=== PATIENT | female | born 1990 | race Caucasian/White ===

== ENCOUNTER 2017-05-11 04:28 | Inpatient (IN) | payer BC ==
[~2017-05-11] VITALS: Ht 160 cm; Wt 107.0 kg
[~2017-05-11 04:28] MED LIST: CITA40TA4 PO
[2017-05-11] MEDS ORDERED: LACTATED RINGER'S 1000ML 1,000 ML IV PRN (05:45)
[2017-05-11 06:13] LABS: HEMATOCRIT 37.1 % (37-47); MEAN CELL VOLUME 79.6 fL (80-100); MEAN CORPUSCULAR HEMOGLOBIN 26.2 pg (25-34); MEAN CORPUSCULAR HGB CONC 32.9 g/dl (32-36); MEAN PLATELET VOLUME 10.7 fL (7.4-10.4); PLATELET COUNT 326 K/uL (130-400); RED BLOOD COUNT 4.66 M/uL (4.2-5.4); WHITE BLOOD COUNT 14.74 K/uL (4.8-10.8)
[2017-05-11 06:20] VITALS: Ht 160 cm; Wt 107.0 kg
[2017-05-11] MEDS ORDERED: LACTATED RINGER'S 1000ML 500 ML IV PRN ×2 (11:01→14:13)
[2017-05-11] MEDS ORDERED: OXYTOCIN 30 UNITS/500ML NSS IV PRN (11:15)
[2017-05-11] MEDS: LACTATED RINGER'S 1000ML 1,000 ML IV SCH ×4 (12:47→23:28)
[2017-05-11] MEDS ORDERED: FENTANYL 2MCG/ML ROPIV 1.25MG/ML 100ML BAG EPI ONE (12:57)
[2017-05-11] MEDS ORDERED: EpHEDrine SULFATE INJ 50 MG/ML AMP ONE (12:57)
[2017-05-11] MEDS ORDERED: BUPIVACAINE 0.25% 30 ML VIAL ONE (12:57)
[2017-05-11] MEDS ORDERED: FENTANYL CITRATE INJ 50 MCG/1 ML 2 ML VIAL ONE (12:58)
[2017-05-11] MEDS ORDERED: NALOXONE HCL INJ 1 MG in SODIUM CHLORIDE 0.9% 1000ML 1,000 ML IV PRN ×4 (14:13)
[2017-05-11] MEDS ORDERED: NALBUPHINE HCL INJ 10 MG/ML AMP IV PRN (14:15)
[2017-05-11] MEDS ORDERED: EpHEDrine SULFATE INJ 50 MG/ML AMP IV PRN (14:15)
[2017-05-11] MEDS ORDERED: NALOXONE HCL INJ 0.4 MG/1 ML VIAL/CARP IV PRN (14:15)
[2017-05-11] MEDS ORDERED: ONDANSETRON INJ 2 MG/ML 2 ML VIAL IV PRN (14:15)
[2017-05-11] MEDS ORDERED: PROMETHAZINE HCL INJ 25 MG in SODIUM CHLORIDE 0.9% 50ML 50 ML IV PRN (14:15)
[2017-05-11] MEDS ORDERED: DiphenhydrAMINE HCL 50 MG/ML VIAL IV PRN (14:15)
[2017-05-11] MEDS: FENTANYL 2MCG/ML ROPIV 1.25MG/ML 100ML BAG EPI PRN ×2 (19:02→20:07)
[2017-05-11] MEDS ORDERED: AMPICILLIN IV 2,000 MG in SODIUM CHLOR 0.9% AD-VAN 100ML 100 ML IV SCH (23:00)
[2017-05-12] VITALS (18 sets, daily range): BP systolic 115–145; BP diastolic 77–93; PULSE 81–99; TEMP 36.4–36.9; O2SAT 94–96
[2017-05-12] MEDS ORDERED: GENTAMICIN INJ 120 MG in DEXTROSE 5% 100ML 100 ML IV SCH ×2
[2017-05-12] MEDS ORDERED: LIDOCAINE/EPINEPHRINE 2% 1:200,000 20 ML SDV ONE (00:02)
[2017-05-12] MEDS ORDERED: FENTANYL CITRATE INJ 50 MCG/1 ML 2 ML VIAL ONE (00:03)
[2017-05-12] MEDS ORDERED: CITRIC ACID/SODIUM CITRATE 15 ML UDC ONE (00:10)
[2017-05-12] MEDS ORDERED: CITRIC ACID/SODIUM CITRATE 15 ML UDC PO ONE (00:15)
[2017-05-12] MEDS ORDERED: CEFAZOLIN IV 2,000 MG in DEXTROSE 5% 50ML 50 ML IV ONE (00:30)
[2017-05-12] MEDS ORDERED: CEFAZOLIN SOD 1 GM VIAL ONE (00:35)
[2017-05-12] MEDS ORDERED: OXYTOCIN INJ 10 UNITS/ML VIAL ONE ×2 (00:41→01:01)
[2017-05-12] MEDS ORDERED: DEXAMETHASONE SOD INJ 4 MG/ML VIAL ONE (00:51)
[2017-05-12] MEDS ORDERED: ONDANSETRON INJ 2 MG/ML 2 ML VIAL ONE (00:51)
[2017-05-12] MEDS ORDERED: MoRPHine SULFATE PF 1 MG/ML 10 ML AMP/VIAL ONE (00:52)
[2017-05-12] MEDS ORDERED: PHENYLEPHRINE 100MCG/ML 5ML SYR ONE (01:03)
[2017-05-12] MEDS ORDERED: PHENYLEPHRINE HCL INJ 10 MG/ML VIAL ONE (01:06)
[2017-05-12] MEDS ORDERED: LACTATED RINGER'S 1000ML 500 ML IV PRN (01:31)
[2017-05-12] MEDS ORDERED: SODIUM CHLORIDE 0.9% 1000ML 1,000 ML IV PRN (01:31)
[2017-05-12] MEDS ORDERED: NALOXONE HCL INJ 0.08 MG in SYRINGE 1.8 ML IV PRN (01:31)
[2017-05-12] MEDS ORDERED: NALOXONE HCL INJ 1 MG in SODIUM CHLORIDE 0.9% 1000ML 1,000 ML IV PRN ×4 (01:31)
--- NOTE | 2017-05-12 01:41 | Anesthesia Procedure Note ---
Anesthesia Epidural Removal Nt Date & Time May 12, 2017 at 01:41 Vital Signs Pain Intensity: 1.0 Notes Mental Status: alert / awake / arousable, participated in evaluation Nausea / Vomiting: adequately controlled Pain: adequately controlled Airway Patency, RR, SpO2: stable & adequate BP & HR: stable & adequate Hydration State: stable & adequate Neuraxial Anesthesia: was administered Anesthetic Complications: no major complications apparent, pt satisfied with anesthetic care Epidural: removed without complications, with tip intact
--- NOTE | 2017-05-12 01:42 | Anesthesiology Progress Note ---
Anesthesia Post Op Note Date & Time May 12, 2017 at 01:41 Vital Signs Pain Intensity: 1.0 Notes Mental Status: alert / awake / arousable, participated in evaluation Pt Amnestic to Procedure: No Nausea / Vomiting: adequately controlled Pain: adequately controlled Airway Patency, RR, SpO2: stable & adequate BP & HR: stable & adequate Hydration State: stable & adequate Neuraxial Anesthesia: was administered, sensory block is resolving Anesthetic Complications: no major complications apparent
[2017-05-12] MEDS ORDERED: ONDANSETRON INJ 2 MG/ML 2 ML VIAL IV PRN ×2 (01:45→18:00)
[2017-05-12] MEDS ORDERED: NALOXONE HCL 0.4 MG/1 ML VIAL/CARP IV PRN (01:45)
[2017-05-12] MEDS ORDERED: DiphenhydrAMINE HCL 50 MG/ML VIAL IV PRN ×2 (01:45→18:00)
[2017-05-12] MEDS ORDERED: SENNA 8.6 MG TAB PO PRN (01:45)
[2017-05-12] MEDS ORDERED: PROMETHAZINE HCL INJ 25 MG in SODIUM CHLORIDE 0.9% 50ML 50 ML IV PRN ×2 (01:45→18:00)
[2017-05-12] MEDS ORDERED: EpHEDrine SULFATE INJ 50 MG/ML AMP IV PRN (01:45)
[2017-05-12] MEDS ORDERED: MoRPHine SULFATE PF 1 MG/ML 10 ML AMP/VIAL EPI PRN (01:45)
[2017-05-12] MEDS ORDERED: SUPERCREAM 0.870 % 15GM JAR EXT PRN (01:45)
[2017-05-12] MEDS ORDERED: MAGNESIUM HYDROXIDE SUSP 30 ML UDC PO PRN (01:45)
[2017-05-12] MEDS ORDERED: HYDROCORTISONE ACETATE 25 MG SUPP PR PRN (01:45)
[2017-05-12] MEDS ORDERED: LANOLIN OINT EXT PRN ×2 (01:45)
[2017-05-12] MEDS ORDERED: NALBUPHINE HCL INJ 10 MG/ML AMP IV PRN (01:45)
[2017-05-12] MEDS ORDERED: NO NARCOTICS OR SEDATIVES SCH (01:45)
[2017-05-12] MEDS ORDERED: BENZOCAINE 20% AER SPR 82.5 GM CAN EXT PRN (01:45)
[2017-05-12] MEDS: KETOROLAC TROMETHAMINE 30 MG/ML VIAL IV. PRN ×3 (02:06→17:20)
[2017-05-12] MEDS: OXYTOCIN INJ 20 UNITS in LACTATED RINGER'S 1000ML 1,000 ML IV SCH ×2 (05:08→15:34)
[2017-05-12] MEDS: AMPICILLIN IV 2,000 MG in SODIUM CHLORIDE 0.9% 100ML 100 ML IV SCH ×3 (05:49→18:01)
[2017-05-12] MEDS: GENTAMICIN INJ 80 MG in DEXTROSE 5% 100ML 100 ML IV SCH ×2 (07:35→16:01)
--- NOTE | 2017-05-12 07:36 | OPERATIVE REPORT ---
DATE OF OPERATION: 05/11/2017 INDICATION FOR SURGERY: This is a 27-year-old, who presented to labor and delivery with spontaneous rupture of membranes. The patient continued to progress with Pitocin augmentation and was fully dilated. The patient pushed for an hour and a half with no change in station, but did experience tachycardia. She was given IV hydration and antibiotics, but the tachycardia did not improve. She eventually spiked a temperature of 101. Decision was, therefore, made to perform a section. The diagnosis at the time of the section was chorioamnionitis. PREOPERATIVE DIAGNOSES: 1. Chorioamnionitis. 2. Prolonged premature rupture of membranes. 3. tachycardia. POSTOPERATIVE DIAGNOSES: Same. PROCEDURE: Primary section. SURGEON: Dr. Esquivel. DIRECTOR COMPLIANCE: Dr. Willoughby. ESTIMATED BLOOD LOSS: 600 mL IV FLUIDS: 1400 mL URINE OUTPUT: 200 mL delio-colored urine at the end of procedure. FINDINGS: Live male in occiput anterior presentation. There was no nuchal cord. Uterus, tubes, and pelvis appeared grossly normal. SPECIMEN: 1. Cord blood. 2. Cord gas. 3. Placenta. DRAINS: Victor catheter. ANESTHESIA: Epidural ATTENDING FOR ANESTHESIA: Dr. Bergeron. COMPLICATIONS: None. DISPOSITION: Stable to recovery room. PROCEDURE: The patient was taken to the operating room where she was prepped and draped in normal sterile fashion after time out was called. A Pfannenstiel incision was made with a scalpel and carried down to the fascia. Fascia was incised in the midline and extended laterally on both sides. The fascia was dissected off the rectus abdominus muscles superiorly and inferiorly. The midline of the rectus abdominis muscle was identified and entered sharply. Peritoneum was identified and entered sharply. It was transected superiorly and inferiorly. Once inside the abdomen, an Glen retractor was placed in the abdomen for retraction. Findings of the abdomen were as dictated above. The vesicouterine peritoneum was sharply dissected off the lower segment of the uterus. A low transverse incision was made on the uterus and extended laterally on both sides. The infant's head was delivered atraumatically. Cord was clamped and cut and handed over to the pediatric team. Infant's weight and Apgars in the pediatric record. The placenta was manually removed. The uterus was exteriorized and cleared of all clots and debris. Uterus was closed in 2 layers, using 0 Vicryl. There was good hemostasis at the end of the closure. The vesicouterine peritoneum was reapproximated using plain suture. Copious amount of irrigation was used to irrigate the abdomen. There was good hemostasis at the end of the procedure. As stated above, both tubes, ovaries and uterus all appeared grossly normal. The peritoneum was loosely reapproximated using plain suture. The rectus abdominus muscle was also loosely reapproximated using plain suture in a [id number] fashion. The fascia was closed in a running fashion using Vicryl stitch. The subQ space was irrigated and closed with plain suture and skin was closed with kelley. All instruments were removed from the abdomen, including the retractors, and are accounted for x2. Baby and mother are doing well and are in recovery. I attest to the content of the Intraoperative Record and any orders documented therein. Any exception s are noted below.
[2017-05-12] MEDS: SIMETHICONE 80 MG CHEW PO SCH ×4 (07:37→20:34)
[2017-05-12] MEDS: DOCUSATE SODIUM 100 MG CAP PO SCH ×2 (08:42→20:34)
[2017-05-12] MEDS: CITALOPRAM 20 MG TAB PO SCH (09:19)
[2017-05-12] MEDS ORDERED: MoRPHine SULFATE 2 MG/ML CARP IV ONE (12:30)
[2017-05-12] MEDS ORDERED: NURSING VERBAL MED ORDER ONE (12:30)
[2017-05-12] MEDS ORDERED: MoRPHine SULFATE 2 MG/ML CARP IV PRN (13:00)
[2017-05-12] MEDS ORDERED: ZOLPIDEM TARTRATE 5 MG TAB PO PRN (18:00)
[2017-05-12] MEDS ORDERED: DC INTRASPINAL MORPHINE SCH (18:00)
[2017-05-12] MEDS ORDERED: OXYCODONE/ACETAMINOPHEN 5-325 TAB PO PRN (18:00)
[2017-05-12] MEDS: OXYCODONE/ACETAMINOPHEN 5-325 TAB PO PRN (20:35)
[2017-05-12] MEDS: IBUPROFEN 600 MG TAB PO PRN (20:36)
[2017-05-13] MEDS: AMPICILLIN IV 2,000 MG in SODIUM CHLORIDE 0.9% 100ML 100 ML IV SCH (00:03)
[2017-05-13] MEDS: GENTAMICIN INJ 80 MG in DEXTROSE 5% 100ML 100 ML IV SCH (00:35)
[2017-05-13] MEDS: OXYCODONE/ACETAMINOPHEN 5-325 TAB PO PRN ×5 (00:36→20:45)
[2017-05-13] MEDS: IBUPROFEN 600 MG TAB PO PRN ×5 (00:36→20:46)
[2017-05-13 06:46] LABS: BASO % 0.1 %; BASO ABS # 0.01 K/uL (0-0.2); COMPLETE YES; EOS % 0.7 %; HEMATOCRIT 28.8 % (37-47); IG% 0.3 %; LYMPH % 17.2 %; MEAN CELL VOLUME 80.9 fL (80-100); MEAN CORPUSCULAR HEMOGLOBIN 25.8 pg (25-34); MEAN CORPUSCULAR HGB CONC 31.9 g/dl (32-36); MEAN PLATELET VOLUME 10.1 fL (7.4-10.4); MONO % 5.8 %; NEUT % 75.9 %; PLATELET COUNT 246 K/uL (130-400); RED BLOOD COUNT 3.56 M/uL (4.2-5.4); WHITE BLOOD COUNT 15.11 K/uL (4.8-10.8)
[2017-05-13 07:50] VITALS: BP 118/80; PULSE 99; TEMP 36.5
[2017-05-13] MEDS: CITALOPRAM 20 MG TAB PO SCH (08:49)
[2017-05-13] MEDS: DOCUSATE SODIUM 100 MG CAP PO SCH ×2 (08:49→20:37)
[2017-05-13] MEDS: SIMETHICONE 80 MG CHEW PO SCH ×4 (08:49→20:37)
--- NOTE | 2017-05-13 11:40 | OB/GYN Progress Note ---
[employer] REPRESENTATIVE EDUCATION COURSES Progress Note Date of Service May 13, 2017. Subjective conversation w/ patient, physical exam Ambulation: ambulating normally Voiding: no voiding problems Passing Gas: Yes Diet Tolerance: Regular Diet Lochia: Small Feeding Type: Breast Feeding Pain: 2/10 Notes: Doing well, pain well controlled. Incision is c/d/i. Tolerating regular diet. Ambulating without difficulty. Objective Vital Signs Date Time Temp Pulse Resp B/P (MAP) Pulse Ox O2 Delivery O2 Flow Rate FiO2 05/13/17 07:50 36.5 99 18 118/80 (93) Room Air 05/13/17 07:50 Room Air 05/12/17 23:55 Room Air 05/12/17 23:55 36.7 87 18 135/85 (102) Room Air 05/12/17 19:30 36.6 93 20 115/77 (90) Room Air 05/12/17 18:30 20 96 05/12/17 17:30 20 96 05/12/17 16:30 20 96 05/12/17 15:30 36.4 81 20 117/79 (92) Room Air 05/12/17 15:30 94 Room Air 05/12/17 15:30 20 95 05/12/17 14:30 18 94 05/12/17 13:30 16 94 05/12/17 12:30 18 95 05/12/17 11:40 36.6 84 18 134/81 (98) 95 Room Air Physical Exam General Appearance: WELL-APPEARING Respiratory/Chest: chest non-tender, lungs clear Cardiovascular: regular rate, rhythm Abdomen: normal bowel sounds, soft Fundus: Firm Incision Description: Clean, Dry & Intact Extremities: normal range of motion, non-tender, no calf tenderness Laboratory Results Last 24 Hours Test 05/13/17 06:02 White Blood Count 15.11 K/uL Red Blood Count 3.56 M/uL Hemoglobin 9.2 g/dL Hematocrit 28.8 % Mean Corpuscular Volume 80.9 fL Mean Corpuscular Hemoglobin 25.8 pg Mean Corpuscular Hemoglobin Concent 31.9 g/dl Platelet Count 246 K/uL Mean Platelet Volume 10.1 fL Neutrophils (%) (Auto) 75.9 % Lymphocytes (%) (Auto) 17.2 % Monocytes (%) (Auto) 5.8 % Eosinophils (%) (Auto) 0.7 % Basophils (%) (Auto) 0.1 % Neutrophils # (Auto) 11.47 K/uL Lymphocytes # (Auto) 2.60 K/uL Monocytes # (Auto) 0.88 K/uL Eosinophils # (Auto) 0.11 K/uL Basophils # (Auto) 0.01 K/uL RDW Standard Deviation 45.4 fL RDW Coefficient of Variation 15.8 % Immature Granulocyte % (Auto) 0.3 % Immature Granulocyte # (Auto) 0.04 K/uL Assessment and Plan Post-Op Day Number: 1 Continue Routine Care: -Continue routine postop care -Incision c/d/i
[2017-05-13 16:00] VITALS: BP 116/82; PULSE 92; TEMP 36.5
[2017-05-13] MEDS ORDERED: BISACODYL 5 MG TABEC PO ONE (22:00)
[2017-05-13] MEDS ORDERED: BISACODYL 5 MG TABEC PO SCH (22:00)
[2017-05-13 23:35] VITALS: BP 138/81; PULSE 93; TEMP 36.5; O2SAT 96
[2017-05-14] MEDS: IBUPROFEN 600 MG TAB PO PRN ×5 (00:41→19:45)
[2017-05-14] MEDS: OXYCODONE/ACETAMINOPHEN 5-325 TAB PO PRN ×5 (00:42→19:45)
[2017-05-14] MEDS ORDERED: BISACODYL 10 MG SUPP PR PRN (01:45)
[2017-05-14 06:41] LABS: HEMATOCRIT 30.3 % (37-47)
--- NOTE | 2017-05-14 08:14 | OB/GYN Progress Note ---
FIELD HEALTH OFFICER Progress Note Date of Service May 14, 2017. Subjective conversation w/ patient, physical exam Ambulation: ambulating normally Voiding: no voiding problems Passing Gas: Yes Diet Tolerance: Regular Diet Lochia: Small Feeding Type: Breast Feeding Pain: 2/10 Notes: Doing well, pain well controlled. Tolerating regular diet, +flatus, -BM. Ambulating without difficulty. Objective Vital Signs Date Time Temp Pulse Resp B/P (MAP) Pulse Ox O2 Delivery O2 Flow Rate FiO2 05/13/17 23:35 36.5 93 20 138/81 (100) 96 Room Air 05/13/17 23:35 96 Room Air 05/13/17 16:00 36.5 92 18 116/82 (93) Room Air 05/13/17 16:00 Room Air Physical Exam General Appearance: WELL-APPEARING Respiratory/Chest: chest non-tender, lungs clear Cardiovascular: regular rate, rhythm Abdomen: normal bowel sounds, soft Fundus: Firm Incision Description: Clean, Dry & Intact Extremities: normal range of motion, non-tender, no calf tenderness Laboratory Results Last 24 Hours Test 05/14/17 06:20 Hemoglobin 9.8 g/dL Hematocrit 30.3 % Assessment and Plan Post-Op Day Number: 2 Continue Routine Care: -Continue routine postop care -Anticipate d/c home tomorrow
[2017-05-14 08:30] VITALS: BP 137/81; PULSE 97; TEMP 36.9; O2SAT 98
[2017-05-14] MEDS: SIMETHICONE 80 MG CHEW PO SCH ×3 (09:30→19:45)
[2017-05-14] MEDS: CITALOPRAM 20 MG TAB PO SCH (09:30)
[2017-05-14] MEDS: DOCUSATE SODIUM 100 MG CAP PO SCH ×2 (09:30→19:45)
[2017-05-14 16:10] VITALS: BP 144/85; PULSE 90; TEMP 36.7
[2017-05-14 22:30] VITALS: BP 131/84; PULSE 81; TEMP 36.4; O2SAT 98
[2017-05-15] MEDS: OXYCODONE/ACETAMINOPHEN 5-325 TAB PO PRN ×3 (02:32→13:45)
[2017-05-15] MEDS: IBUPROFEN 600 MG TAB PO PRN ×3 (02:32→13:45)
[2017-05-15 07:40] VITALS: BP 157/98; PULSE 78; TEMP 36.4; O2SAT 96
[2017-05-15] MEDS ORDERED: CITALOPRAM 40 MG TAB PO SCH (08:00)
--- NOTE | 2017-05-15 08:24 | OB/GYN Progress Note ---
LIFE ENRICHMENT DIRECTOR Progress Note Date of Service: May 15, 2017. Patient is seen and examined. She feels well, no complaints. Pain is under control with oral meds. Ambulating without dizziness Voiding without difficulty Tolerating regular diet with out N&V Flatus + BM + Bleeding is minimal No fever/ chills/ CP/ SOB/ N&V/ Leg pain Breast feeding without problems Date Time Temp Pulse Resp B/P (MAP) Pulse Ox O2 Delivery O2 Flow Rate FiO2 05/14/17 22:30 Room Air 05/14/17 22:30 36.4 81 16 131/84 (100) 98 Room Air 05/14/17 16:10 Room Air 05/14/17 16:10 36.7 90 18 144/85 (104) Room Air 05/14/17 08:30 36.9 97 22 137/81 (99) 98 Room Air 05/14/17 08:30 98 Room Air Test 05/11/17 05:59 05/11/17 06:16 05/13/17 06:02 05/14/17 06:20 White Blood Count 14.74 H 15.11 H Red Blood Count 4.66 3.56 L Hemoglobin 12.2 9.2 L 9.8 L Hematocrit 37.1 28.8 L 30.3 L Mean Corpuscular Volume 79.6 L 80.9 Mean Corpuscular Hemoglobin 26.2 25.8 Mean Corpuscular Hemoglobin Concent 32.9 31.9 L RDW Standard Deviation 43.8 45.4 RDW Coefficient of Variation 15.2 H 15.8 H Platelet Count 326 246 Mean Platelet Volume 10.7 H 10.1 Amniotic Fluid Protein POS Neutrophils (%) (Auto) 75.9 Lymphocytes (%) (Auto) 17.2 Monocytes (%) (Auto) 5.8 Eosinophils (%) (Auto) 0.7 Basophils (%) (Auto) 0.1 Neutrophils # (Auto) 11.47 H Lymphocytes # (Auto) 2.60 Monocytes # (Auto) 0.88 H Eosinophils # (Auto) 0.11 Basophils # (Auto) 0.01 Immature Granulocyte % (Auto) 0.3 Immature Granulocyte # (Auto) 0.04 H PE: General: Alert, orientedx3, NAD CVS: S1S2 RRR Lungs; CTAB Abd: soft, NT, fundus firm, below Umbilicus Incision: Clean, dry, intact Perineum intact, Lochia rubra minimal Ext; NT, no edema AP: 27 yo s/p C Section, pod# 3 VSS Afebrile doing well Continue routine postop care Encourage ambulation, PO intake Instructions were given when to call All questions were answered D/C home f/u in office
[2017-05-15] MEDS ORDERED: OXYC-57 PO (08:26)
[2017-05-15] MEDS ORDERED: PRENTAB89 MT (08:26)
[2017-05-15] MEDS ORDERED: MTR600X PO (08:26)
--- NOTE | 2017-05-15 08:27 | Discharge Instructions ---
Discharge Instructions Date of Service May 15, 2017. Admission Reason for Admission: Srom, Term Discharge Discharge Diagnosis / Problem: CSECTION Discharge Goals Goal(s): Routine recovery after Medications Continue Dispensed Medications: lansinoh Activity Recommendations Activity Limitations: as noted below Lifting Limitations: no more than 10 pounds Exercise/Sports Limitations: until after follow-up appointment May Resume Sexual Activity: after follow-up appointment Shower/Bathe: keep incision dry Driving or Machine Use: ACTIVITY RECOMMENDATIONS: * Gradual return to full activity over the next 2-3 weeks. * No lifting - nothing heavier than baby over the next 2-3 weeks. * Do not engage in vigorous exercise, sexual activity or sports until cleared by your physician. * Do not drive or operate any motorized equipment until cleared by your physician. * You may shower/bathe daily. BREAST CARE: If you are not breast feeding: * Wear a supportive bra 24 hours a day for one to two weeks. * Avoid stimulating your breasts and nipples as much as possible during the first few weeks after delivery. * When taking a shower, have the warm water hit your back, not breasts. * When your breasts feel full, apply ice packs. Usually three to four times a day helps ease the discomfort. * Take a mild pain medication (Tylenol/Motrin) when you are uncomfortable. If breast feeding: * Use breast milk to lubricate nipples. Lansinoh cream may be used for sore nipples. You do not need to remove cream prior to breast feeding. If using a different brand of cream, check the label for directions regarding removal of cream prior to nursing. * Wear a supportive bra. * If having problems with breasts or breast feeding, call a solutions market consultant or your health care provider. OVER THE COUNTER MEDICATION: * For discomfort or pain, you may use Acetaminophen (Tylenol), Ibuprofen (Advil ), or Naproxen (Aleve) following the package directions. * For constipation you may use Colace following the package directions. SPECIAL CARE INSTRUCTIONS: When you are discharged from the hospital, it is important for you to follow the instructions listed below: * During the first week at home, you should be able to care for yourself and your baby. In addition, the usual light household activities are encouraged. * Limit your activities to the way you feel. Do not try to clean the house or move furniture. Be sensible. * If you actively engage in sports and have done so up until the time of your delivery, you may resume these activities as soon as you feel able. This may take up to one month or even longer. Use good judgment. * Continue to take your vitamins for at least six weeks after the of your baby. * Your diet need not be limited unless you were on a special diet before your delivery. Breast-feeding mothers need around 2500 calories per day and at least 64-80 ounces of fluid per day (8 to 10 glasses). * You should eat foods from the four major food groups. Crash diets or fad diets are to be avoided. Eating lean meats, fresh fruits and vegetables, low-fat dairy products, high fiber foods and a regular exercise program, will help you get back to your pre- weight without putting your health at risk. * Constipation is sometimes a problem after delivery. Take a mild laxative as needed. If breast feeding, Milk of Magnesia is acceptable to use. You may use a suppository or Fleets enema if no episiotomy. * A daily shower or tub bath is suggested. Be sure to thoroughly and gently dry the perineum. * A bloody vaginal discharge will usually continue until around four weeks post . A small amount of bleeding may continue for as long as six weeks. Vaginal discharge changes from the bright red bleeding after delivery to pink then brownish and finally yellowish-pink before becoming white and disappearing. * Bleeding may increase with activity. Your first period may come in 4-8 weeks. If you are breast feeding, your period may be delayed even longer. * [place] (sex) can begin whenever both you and your partner feel comfortable and do not have any form of genital infection. It is recommended that you wait at least six weeks for internal and external healing to occur. If you have questions, please talk to your health care practitioner. A condom should be used to prevent infection and . * Foreplay, gentle intercourse and lubrication is very important the first several times to prevent pain. A water-based lubricant such as K-Y jelly or Astroglide may be used. * Tampons and/or Douching should be avoided until after six weeks check-up. * If you have RH negative blood and your baby is RH positive, you will receive RHOGAM by injection prior to discharge. The nurse will give you a card to keep with you that has the date and place that you received RHOGAM after delivery. * During your care, you had a Rubella screen done to check for the presence of rubella antibodies in your blood. If your test was negative, you will receive a Rubella vaccine prior to discharge. This vaccine may cause a fever, soreness at the injection site and flu-like symptoms. If these symptoms persist, notify your health care practitioner. is not advised for three months after a Rubella vaccine. * Verbalizes understanding of car seat law as reviewed with patient nursing. * Car Seat hand-out given and reviewed with patient by nursing. * Shaken baby information reviewed with patient by nursing. Call you doctor if: * Heavy bleeding (saturating several pads an hour) or passing clots the size of your fist. * A fever >101 degrees F (38.3 degrees C) on two occasions four hours apart and /or chills. * Unusual pain in the pelvic or vaginal areas. Pain should improve each day . * Call the doctor for any increased redness, drainage or swelling around the incision and any pain unrelieved by prescribed pain medication. * Any signs or symptoms of phlebitis (possible blood clots forming in the veins ): leg pain, warm, red or swollen area on leg. * "Baby Blues" lasting longer than two weeks. If you have any questions or concerns, call your health care practitioner at . FOLLOW-UP VISIT: * Incision check (staple removal) in 1 week. Please call doctor's office at to set up appointment. * Please call the office at to schedule a 6 week examination. It is important you keep this appointment. * It is important for you to make arrangements for either yearly or twice yearly check-ups thereafter. . Current Hospital Diet Patient's current hospital diet: Regular OB Diet Discharge Diet Recommended Diet: Regular Diet Procedures Procedures Performed: Primary caesarean section with lower uterine transverse incision. Delivery of live male child at 0043 Pending Studies Studies pending at discharge: no Medical Emergencies . Who to Call and When: Medical Emergencies: If at any time you feel your situation is an emergency, please call 911 immediately. . Non-Emergent Contact Non-Emergency issues call your: Primary Care Provider, Surgeon Call Non-Emergent contact if: temperature is above 100.5, your pain is not controlled, your pain is worsening, wound has increased drainage, wound has increased redness . . "Provider Documentation" section prepared by Vesta Miller. . VTE Core Measure Inpt VTE Proph given/why not?: Treatment not indicated
[2017-05-15] MEDS: SIMETHICONE 80 MG CHEW PO SCH ×2 (08:33→13:44)
[2017-05-15] MEDS: DOCUSATE SODIUM 100 MG CAP PO SCH (08:33)
[2017-05-15] MEDS ORDERED: CLX40 PO (12:58)
[2017-05-15 14:10] VITALS: BP_DIAS 98; PULSE 78; TEMP 36.4
--- NOTE | 2017-05-20 09:59 | DISCHARGE SUMMARY ---
CHIEF COMPLAINT: at term, induction for post-dates. HISTORY OF PRESENT ILLNESS: This is a 27-year-old G1, P0 who presented to labor and delivery with spontaneous rupture of membranes. The patient continued to progress with Pitocin augmentation and became fully dilated. The patient pushed for over half an hour with no change in station. The fetus began to experience tachycardia. The patient received IV hydration and antibiotics for tachycardia. Her temperature eventually spiked to 101. At this point, the diagnosis was chorioamnionitis. The patient's tachycardia did not improve with IV hydration and antibiotics. Decision was therefore made to perform section. The patient went on to have surgery and delivered a live infant male weighing 7 pounds 8 ounces, Apgars 7 and 8. Surgery was otherwise unremarkable. The patient did well and recovered postop day 1, 2 and 3 and went home on postoperative day 3, which was 05/15/2017 in stable condition. PAST MEDICAL HISTORY: 1. History of anxiety. 2. History of adjustment disorder. PAST SURGICAL HISTORY: None. SOCIAL HISTORY: The patient denies tobacco, drug or alcohol use. ALLERGIES: No known drug allergies. REVIEW OF SYSTEMS: Negative except as dictated in the HPI. PHYSICAL EXAMINATION: GENERAL: Well-developed, well-nourished white female in no acute distress. VITAL SIGNS: On 05/15/2017 showed a temperature of 36.4, pulse of 78, respiration was 60, and blood pressure of 157/78. HEART: S1, S2, regular rhythm and rate. LUNGS: Clear to auscultation bilaterally. ABDOMEN: Nontender, nondistended. Incision appeared clean, dry and intact. EXTREMITIES: No cyanosis, clubbing or edema. LABORATORY DATA: On day of discharge, hemoglobin was 9.8, hematocrit was 30.3. CONDITION ON DISCHARGE: Stable. OPERATION: section. DISCHARGE DIAGNOSIS: Postoperative section. PLAN ON DISCHARGE: The patient is discharged home with instructions regarding activity, diet, follow-up appointment and medications.
== END 2017-05-15 16:20 | disposition home or self-care (01) | DRG 766 ==
LOC: C.LD 04:28 → C.OPB 04:28 → C.LD 05:46 → C.OBG 05-12 05:32
PROVIDERS: ADMIT Obstetrics & Gynecology; ATTEND Obstetrics & Gynecology
PROC: 10D00Z1 Extraction of Products of Conception, Low, Open Approach (ICD-10-PCS; principal; 2017-05-11)
DX: O41.1230 Chorioamnionitis, third trimester, not applicable or unspecified (principal); O76 Abnormality in fetal heart rate and rhythm complicating labor and delivery; Z37.0 Single live birth; Z3A.40 40 weeks gestation of pregnancy

== ENCOUNTER 2019-08-20 06:40 | Inpatient (IN) ==
--- NOTE | 2019-08-12 10:24 | PAT Medication Instructions ---
Medication Instructions Date of Service August 12, 2019 Home Medications PNV cmb#95-ferrous fumarate-FA [] 1 tab PO QAM citalopram 20 mg PO QAM DO NOT take the morning of surgery PNV cmb#95-ferrous fumarate-FA [] 1 tab PO QAM Take morning of surgery With a small sip of water, OTHERWISE NOTHING TO EAT OR DRINK AFTER MIDNIGHT: citalopram 20 mg PO QAM Other Notes If you have any questions please call us at [phone] or [phone] or [phone] or [phone]
--- NOTE | 2019-08-13 09:40 | Anesthesiology Consultation ---
Date of Service August 13, 2019 Assessment & Plan (1) Encounter for pre-operative examination: - No PAT labs: per OB, no labs to be drawn at PAT Chart Review Chart Review: Acceptable Risk for Surgery (pending labs AM DOS) and Patient seen in Pre Admission Testing Teaching & Discussion Pre-Anesthesia Teaching/Discussion Notes: Instructed NPO after midnight before surgery,except medications with 15 cc of water. Medication instructions provided according to the [facility] guidelines. History Surgery Operation Date: 08/20/19 08:30 Proposed Procedures p Section in LD - Froilan Esquivel MD Height/Weight Height: 5 ft 3 in Weight: 106.4 kg Allergies Allergy/AdvReac Type Severity Reaction Status Date / Time nickel Allergy Unknown REDNESS Verified 08/07/19 15:12 AND SWELLING Medications Home Medications Medication Instructions Recorded Confirmed Last Taken PNV cmb#95-ferrous fumarate-FA 1 tab PO QAM 08/07/19 08/12/19 08/12/19 08:00 [] citalopram 20 mg PO QAM 08/07/19 08/12/19 08/12/19 08:00 Past Medical History Medical History Anxiety Obesity Exercise / Class Metabolic Activity III < 4 Walking/Shop/Light housework Past Surgical History Surgical History Hx of section c/s (emergent): 05/12/17: dosed epidural at L3-L4 x3 attempts 2/2 "to bone" Hx of wisdom tooth extraction Past Anesthesia History No Hx of Anesthesia Complications and No Family Hx of Anesthesia Complications History of PONV No Hx of PONV and Hx of Motion Sickness (mild) Social History Smoking Status: Former smoker Do You Dip or Chew Tobacco: No Smoking End Date: 3 YR AGO Hx Alcohol Use: Yes Hx Substance Use: No Review of Systems related reflux. Patient denies chest pain, shortness of breath, cough, wheezing, palpitations. Physical Exam Vital Signs VITALS BP 113/73 P 98 TEMP 98.5 SP02 97%RA RESP 98.5 PHYSICAL Full neck and c-spine range of motion. Full TMJ range of motion. TMD 4 finger breaths Mallampati Score 3 Dentition: missing crown on molar (chipped tooth) Lungs: clear throughout to auscultation Cardiac: regular rate and rhythm, no murmurs noted Spine: normal Carotid arteries: negative bruit Extremities: no edema
[~2019-08-20 06:40] MED LIST changes: +CEFAZOLIN 3,000 MG in DEXTROSE 5% 50 ML IV SCH; -CITA40TA4 PO; +CITRIC ACID/SODIUM CITRATE 15 ML UDC PO SCH; +LACTATED RINGER'S 1,000 ML IV SCH
[2019-08-20] MEDS ORDERED: OXYTOCIN 10 UNITS/ML VIAL ONE ×3 (06:53→06:58)
[2019-08-20] MEDS ORDERED: MoRPHine SULFATE PF 1 MG/ML 10 ML AMP/VIAL ONE (06:53)
[2019-08-20] MEDS ORDERED: fentaNYL citrate 100 MCG/2 ML VIAL ONE (06:53)
[2019-08-20] MEDS ORDERED: LACTATED RINGER'S 1,000 ML IV SCH ×3 (07:00→10:15)
[2019-08-20 07:08] LABS: Basophils # (auto) 0.02 K/uL (0-0.2); Basophils % (auto) 0.2 %; Eosinophils # (auto) 0.14 K/uL (0-0.5); Eosinophils % (auto) 1.4 %; Hematocrit (blood only) 34.7 % (37-47); Hemoglobin 11.2 g/dL (12.0-16.0); Immature Granulocytes # (auto) 0.02 K/uL (0.00-0.02); Immature Granulocytes % (auto) 0.2 %; Lymphocytes # (auto) 2.21 K/uL (1.2-3.4); Lymphocytes % (auto) 22.5 %; Mean Corpuscular Hemoglobin 24.2 pg (25-34); Mean Corpuscular Hgb Conc 32.3 g/dL (32-36); Mean Corpuscular Volume 74.9 fL (80-100); Mean Platelet Volume 10.8 fL (7.4-10.4); Monocytes # (auto) 0.65 K/uL (0.11-0.59); Monocytes % (auto) 6.6 %; Neutrophils # (auto) 6.79 K/uL (1.4-6.5); Neutrophils % (auto) 69.1 %; Platelet Count 243 K/uL (130-400); RDW Coefficient of Variation 15.2 % (11.5-14.5); Red Blood Count 4.63 M/uL (4.2-5.4); White Blood Count 9.83 K/uL (4.8-10.8)
[2019-08-20] MEDS ORDERED: miSOPROStoL 200 MCG TAB ONE (08:13)
--- NOTE | 2019-08-20 08:31 | History & Physical Bridge Note ---
Date of Service August 20, 2019 History & Physical Bridge Note I have examined the patient, reviewed the History & Physical and in the interval since the performance of the History & Physical I have noted the following changes of clinical significance: no changes noted
[2019-08-20] MEDS ORDERED: ONDANSETRON INJ 2 MG/ML 2 ML VIAL ONE (09:01)
[2019-08-20] MEDS ORDERED: PHENYLEPHRINE 100MCG/ML 5ML SYR ONE (09:04)
[2019-08-20] MEDS ORDERED: NALOXONE HCL 1 MG in SODIUM CHLORIDE 0.9% 1000ML 1,000 ML IV PRN (09:13)
[2019-08-20] MEDS ORDERED: NALOXONE HCL 0.4 MG/1 ML VIAL/CARP IV PRN (09:13)
[2019-08-20] MEDS ORDERED: NALBUPHINE HCL INJ 10 MG/ML AMP IV PRN (09:13)
[2019-08-20] MEDS ORDERED: LACTATED RINGER'S 500 ML IV PRN (09:13)
[2019-08-20] MEDS ORDERED: MoRPHine SULFATE PF 1 MG/ML 10 ML AMP/VIAL INT SPINAL ONE (09:13)
[2019-08-20] MEDS ORDERED: MEPERIDINE HCL 25 MG/ML CARP IV PRN (09:13)
[2019-08-20] MEDS ORDERED: ePHEDrine sulfate 50 MG/ML AMP IV PRN (09:13)
[2019-08-20] MEDS ORDERED: NALOXONE HCL 0.08 MG in SYRINGE 1.8 ML IV PRN (09:13)
[2019-08-20] MEDS ORDERED: DiphenhydrAMINE HCL 50 MG/ML VIAL IV PRN (09:13)
[2019-08-20] MEDS ORDERED: NO NARCOTICS OR SEDATIVES SCH (09:15)
[2019-08-20] MEDS ORDERED: DC INTRASPINAL MORPHINE SCH (09:15)
[2019-08-20] MEDS ORDERED: SODIUM CHLORIDE 0.9% 1000ML 1,000 ML IV SCH (09:15)
[2019-08-20] MEDS ORDERED: ONDANSETRON INJ 2 MG/ML 2 ML VIAL IV PRN (10:01)
[2019-08-20] MEDS ORDERED: BENZOCAINE 20% AER SPR 82.5 GM CAN EXT PRN (10:01)
[2019-08-20] MEDS ORDERED: MAGNESIUM HYDROXIDE SUSP 30 ML UDC PO PRN (10:01)
[2019-08-20] MEDS ORDERED: DIPHTHERIA/TETANUS/PERTUSSIS 0.5 ML SYR/VIAL IM ONE (10:01)
[2019-08-20] MEDS ORDERED: HYDROCORTISONE ACETATE 25 MG SUPP PR PRN (10:01)
[2019-08-20] MEDS ORDERED: SENNA 8.6 MG TAB PO PRN (10:01)
[2019-08-20] MEDS ORDERED: SUPERCREAM 0.870% 15 GM JAR EXT PRN (10:01)
--- NOTE | 2019-08-20 11:08 | Operative Report ---
DATE OF OPERATION: 08/20/2019 INDICATION FOR SURGERY: This is a 29-year-old at term with previous section who wished to have repeat section. PREOPERATIVE DIAGNOSES: 1. at term. 2. Previous section, wishes to have a repeat section. SURGEON: Froilan Esquivel MD. LASTING MACHINE OPERATOR: Romina Ashby_ INTRAVENOUS FLUIDS: 1500 mL. ESTIMATED BLOOD LOSS: 600 mL. URINE OUTPUT: 350 mL of clear urine at the end of the procedure. FINDINGS: Live infant male with 2 nuchal cords and 1 body cord. The uterus, adnexa appeared grossly normal. ANESTHESIA: Spinal. ATTENDING FOR ANESTHESIA: Dr. Lin. COMPLICATIONS: None. DRAINS: Victor catheter. PATHOLOGY: Placenta. DISPOSITION: Stable to recovery room. DESCRIPTION OF PROCEDURE: The patient was taken to the operating room where she was prepped and draped in normal sterile fashion. Timeout was called. A Pfannenstiel incision was made with a scalpel through the old scar to the fascia. Fascia was incised in the midline and extended laterally on both sides. Fascia was sharply dissected off the rectus abdominus muscle. Peritoneum was identified and entered sharply. An Glen retractor was placed in the abdomen. Uterus was identified, lower segment of the uterus identified as well. Vesicouterine peritoneum was sharply dissected off the lower segment of the uterus. Transverse incision was made on the uterus and extended laterally on both sides with a scalpel and bandage scissors, respectively. was delivered. Nuchal cord x2 was reduced. Baby has a body cord around the left arm. Cord was clamped and cut, and handed over to the waiting pediatric team. Weight is pending. Apgars 7 and 8. Placenta was manually removed. Uterus was exteriorized and cleared of all clots and debris. Uterus was closed in 2 layers with Vicryl stitch. There was good hemostasis post repair. IM Pitocin is given. Vesicouterine peritoneum is reapproximated using plain suture. Copious amount of irrigation used to irrigate the abdomen. Uterus was returned into the abdominal cavity. An Glen retractor was removed. Inspection of the abdomen at this point showed good hemostasis. The fascia is closed in a running fashion with Vicryl stitch. SubQ space is reapproximated with plain suture and skin was closed with 4-0 Monocryl. All instruments are removed from the abdomen and accounted for x2 including sponges, needles and retractors. Baby and mother are doing well in recovery. I attest to the content of the Intraoperative Record and any orders documented therein. Any exceptions are noted below. CELENA
[2019-08-20] MEDS ORDERED: OXYTOCIN 10 UNITS/ML VIAL IM ONE (11:38)
--- NOTE | 2019-08-20 11:39 | Anesthesiology Progress Note ---
Date of Service August 20, 2019 Anesthesia Post Procedure Vital Signs Vital Signs: Temp Pulse Pulse Resp BP BP Pulse Ox 08/20/19 11:35 79 100 08/20/19 11:34 88 124/77 08/20/19 11:30 86 97 08/20/19 11:25 77 99 08/20/19 11:20 74 99 08/20/19 11:15 79 99 08/20/19 11:10 76 99 08/20/19 11:05 77 99 08/20/19 11:02 78 110/63 08/20/19 11:00 76 100 08/20/19 10:55 79 98 08/20/19 10:52 82 118/67 08/20/19 10:50 81 99 08/20/19 10:45 79 99 08/20/19 10:42 78 123/73 08/20/19 10:40 79 99 08/20/19 10:35 80 97 08/20/19 10:32 81 110/70 08/20/19 10:30 84 20 98 08/20/19 10:25 79 98 08/20/19 10:22 75 109/77 08/20/19 10:20 97.3 F L 79 72 20 108/68 99 08/20/19 10:15 83 97 08/20/19 10:12 70 107/54 L 90 08/20/19 10:10 71 98 08/20/19 10:05 68 97 08/20/19 10:01 71 108/68 08/20/19 10:00 72 99 08/20/19 06:59 97.9 F 20 08/20/19 06:50 91 H 124/77 Transfer of Care Handoff Completed per policy Notes Mental Status: alert / awake / arousable and participated in evaluation Patient Amnestic to Procedure: Yes Nausea / Vomiting: adequately controlled Pain: adequately controlled Airway Patency, RR, SpO2: stable & adequate BP & HR: stable & adequate Hydration State: stable & adequate Neuraxial Anesthesia: was administered and sensory block is resolving Anesthetic Complications: no major complications apparent and Pt Satisfied with anesthetic care
[2019-08-20] MEDS: KETOROLAC 30 MG/ML VIAL IV PRN ×2 (12:04→19:07)
[2019-08-20] MEDS: OXYTOCIN 20 UNITS in LACTATED RINGER'S 1,000 ML IV SCH ×2 (13:59→21:27)
[2019-08-20] MEDS: SIMETHICONE 80 MG CHEW PO SCH ×2 (14:08→21:07)
[2019-08-20] MEDS: DOCUSATE SODIUM 100 MG CAP PO SCH (21:07)
[2019-08-21] MEDS ORDERED: DiphenhydrAMINE HCL 50 MG/ML VIAL IV PRN (03:13)
[2019-08-21] MEDS ORDERED: PROMETHAZINE HCL 25 MG in SODIUM CHLORIDE 0.9% 50 ML IV PRN (03:13)
[2019-08-21] MEDS: IBUPROFEN 600 MG TAB PO PRN ×5 (04:05→21:59)
[2019-08-21] MEDS: OXYCODONE/ACETAMINOPHEN 5mg/325mg TAB PO PRN ×5 (04:05→22:00)
[2019-08-21 05:58] LABS: Basophils # (auto) 0.01 K/uL (0-0.2); Basophils % (auto) 0.1 %; Eosinophils # (auto) 0.09 K/uL (0-0.5); Eosinophils % (auto) 0.8 %; Hematocrit (blood only) 32.2 % (37-47); Hemoglobin 10.2 g/dL (12.0-16.0); Immature Granulocytes # (auto) 0.03 K/uL (0.00-0.02); Immature Granulocytes % (auto) 0.3 %; Lymphocytes # (auto) 1.18 K/uL (1.2-3.4); Lymphocytes % (auto) 10.3 %; Mean Corpuscular Hemoglobin 23.6 pg (25-34); Mean Corpuscular Hgb Conc 31.7 g/dL (32-36); Mean Corpuscular Volume 74.5 fL (80-100); Mean Platelet Volume 9.6 fL (7.4-10.4); Monocytes # (auto) 0.75 K/uL (0.11-0.59); Monocytes % (auto) 6.5 %; Neutrophils # (auto) 9.44 K/uL (1.4-6.5); Platelet Count 186 K/uL (130-400); RDW Coefficient of Variation 14.8 % (11.5-14.5); RDW Standard Deviation 40.2 fL (36.4-46.3); Red Blood Count 4.32 M/uL (4.2-5.4)
[2019-08-21 06:15] LABS: RBC Morphology Unremarkable
--- NOTE | 2019-08-21 07:27 | Obstetrical Progress Note ---
Date of Service August 21, 2019 Physical Exam Physical Exam: abdomen soft and non tender bowel sounds normal passing flatus bandage removed incision is clean and dry no calf tenderness ambulating well Results & Data Vital Signs (Past 12 Hours) Vital Signs Temp Pulse Resp BP Pulse Ox 08/21/19 04:00 36.8 C 93 H 16 128/79 97 08/21/19 03:15 18 93 08/21/19 02:10 18 94 08/21/19 01:12 16 93 08/21/19 00:15 36.9 C 86 17 108/64 98 08/20/19 23:35 16 97 08/20/19 22:36 18 98 08/20/19 21:33 17 100 08/20/19 20:42 18 100 08/20/19 19:40 88 18 125/70 100
--- NOTE | 2019-08-21 07:28 | Obstetrical Progress Note ---
Date of Service August 21, 2019 Physical Exam Physical Exam: bleeding is scant hgb 10.2 Results & Data Vital Signs (Past 12 Hours) Vital Signs Temp Pulse Resp BP Pulse Ox 08/21/19 04:00 36.8 C 93 H 16 128/79 97 08/21/19 03:15 18 93 08/21/19 02:10 18 94 08/21/19 01:12 16 93 08/21/19 00:15 36.9 C 86 17 108/64 98 08/20/19 23:35 16 97 08/20/19 22:36 18 98 08/20/19 21:33 17 100 08/20/19 20:42 18 100 08/20/19 19:40 88 18 125/70 100
[2019-08-21] MEDS: SIMETHICONE 80 MG CHEW PO SCH ×4 (08:19→21:39)
[2019-08-21] MEDS: FERROUS SULFATE 325 MG TAB PO SCH (08:19)
[2019-08-21] MEDS: PRENATAL VITAMIN 1 TAB PO SCH (08:19)
[2019-08-21] MEDS: CITALOPRAM 40 MG TAB PO SCH (08:20)
[2019-08-21] MEDS: DOCUSATE SODIUM 100 MG CAP PO SCH ×2 (08:20→20:18)
--- NOTE | 2019-08-21 08:33 | Anesthesiology Progress Note ---
Date of Service August 21, 2019 Anesthesia Post Procedure Vital Signs Vital Signs: Temp Pulse Pulse Resp BP BP Pulse Ox 08/21/19 04:00 36.8 C 93 H 16 128/79 97 08/21/19 03:15 18 93 08/21/19 02:10 18 94 08/21/19 01:12 16 93 08/21/19 00:15 36.9 C 86 17 108/64 98 08/20/19 23:35 16 97 08/20/19 22:36 18 98 08/20/19 21:33 17 100 08/20/19 20:42 18 100 08/20/19 19:40 88 18 125/70 100 08/20/19 17:43 16 95 08/20/19 17:13 20 99 08/20/19 16:10 37.1 C 79 20 118/79 99 08/20/19 15:10 20 99 08/20/19 13:50 36.8 C 81 18 125/80 97 08/20/19 12:50 81 18 122/75 96 08/20/19 12:21 74 133/79 08/20/19 12:20 73 98 08/20/19 12:10 77 98 08/20/19 12:05 75 99 08/20/19 12:04 75 126/76 08/20/19 12:00 81 99 08/20/19 11:55 75 99 08/20/19 11:50 36.8 C 75 73 18 133/79 98 08/20/19 11:45 87 98 08/20/19 11:40 80 99 08/20/19 11:35 79 100 08/20/19 11:34 88 124/77 08/20/19 11:30 86 97 08/20/19 11:25 77 99 08/20/19 11:20 74 99 08/20/19 11:15 79 99 08/20/19 11:10 76 99 08/20/19 11:05 77 99 08/20/19 11:02 78 110/63 08/20/19 11:00 76 100 08/20/19 10:55 79 98 08/20/19 10:52 82 118/67 08/20/19 10:50 81 99 08/20/19 10:45 79 99 08/20/19 10:42 78 123/73 08/20/19 10:40 79 99 08/20/19 10:35 80 97 08/20/19 10:32 81 110/70 08/20/19 10:30 84 20 98 08/20/19 10:25 79 98 08/20/19 10:22 75 109/77 08/20/19 10:20 36.3 C L 79 72 20 108/68 99 08/20/19 10:15 83 97 08/20/19 10:12 70 107/54 L 90 08/20/19 10:10 71 98 08/20/19 10:05 68 97 08/20/19 10:01 71 108/68 08/20/19 10:00 72 99 Pain Intensity Abdomen: Pain Intensity: 2 Transfer of Care Handoff Completed per policy Notes Mental Status: alert / awake / arousable Patient Amnestic to Procedure: Yes Nausea / Vomiting: adequately controlled Pain: adequately controlled Airway Patency, RR, SpO2: stable & adequate BP & HR: stable & adequate Hydration State: stable & adequate Neuraxial Anesthesia: was administered and sensory block resolved Anesthetic Complications: no major complications apparent and Pt Satisfied with anesthetic care
[2019-08-21] MEDS ORDERED: Nursing to Pharmacy Communication ONE (12:49)
[2019-08-21] MEDS ORDERED: BISACODYL 5 MG TABEC PO SCH (20:00)
[2019-08-22] MEDS: IBUPROFEN 600 MG TAB PO PRN ×4 (05:19→19:48)
[2019-08-22] MEDS: OXYCODONE/ACETAMINOPHEN 5mg/325mg TAB PO PRN ×4 (05:19→19:49)
[2019-08-22 06:27] LABS: Hemoglobin 10.1 g/dL (12.0-16.0)
[2019-08-22] MEDS: DOCUSATE SODIUM 100 MG CAP PO SCH ×2 (08:41→19:48)
[2019-08-22] MEDS: FERROUS SULFATE 325 MG TAB PO SCH (08:41)
[2019-08-22] MEDS: PRENATAL VITAMIN 1 TAB PO SCH (08:41)
[2019-08-22] MEDS: CITALOPRAM 40 MG TAB PO SCH (08:41)
[2019-08-22] MEDS: SIMETHICONE 80 MG CHEW PO SCH ×3 (08:41→19:48)
[2019-08-22] MEDS ORDERED: BISACODYL 10 MG SUPP PR PRN (10:01)
--- NOTE | 2019-08-22 10:20 | Surgery Progress Note ---
Date of Service August 22, 2019 Subjective doing well Physical Exam Constitutional: WD/WN, vitals as above comfortable incision clean dry and intact Abdomen soft and non-tender fundus firm no edema neg Santosh's tent d/c in AM Results & Data Vital Signs (Past 12 Hours) Vital Signs Temp Pulse Resp BP BP Pulse Ox 08/22/19 07:47 36.5 C 77 18 108/62 95 08/21/19 23:05 36.6 C 92 H 16 121/73 97 Laboratory Results Laboratory Results - last 72 hr 08/20/19 08/20/19 08/21/19 06:53 06:53 05:48 WBC 9.83 11.50 H RBC 4.63 4.32 Hgb 11.2 L 10.2 L Hct 34.7 L 32.2 L MCV 74.9 L 74.5 L MCH 24.2 L 23.6 L MCHC 32.3 31.7 L RDW Std Deviation 41.0 40.2 RDW Coeff of Jay 15.2 H 14.8 H Plt Count 243 186 MPV 10.8 H 9.6 Immature Gran % (Auto) 0.2 0.3 Neut % (Auto) 69.1 82.0 Lymph % (Auto) 22.5 10.3 Cooper % (Auto) 6.6 6.5 Eos % (Auto) 1.4 0.8 Baso % (Auto) 0.2 0.1 Immature Gran # (Auto) 0.02 0.03 H Neut # (Auto) 6.79 H 9.44 H Lymph # (Auto) 2.21 1.18 L Cooper # (Auto) 0.65 H 0.75 H Eos # (Auto) 0.14 0.09 Baso # (Auto) 0.02 0.01 RBC Morphology Unremarkable Blood Type A Positive Antibody Screen NEGATIVE 08/22/19 06:00 WBC RBC Hgb 10.1 L Hct 32.0 L MCV MCH MCHC RDW Std Deviation RDW Coeff of Jay Plt Count MPV Immature Gran % (Auto) Neut % (Auto) Lymph % (Auto) Cooper % (Auto) Eos % (Auto) Baso % (Auto) Immature Gran # (Auto) Neut # (Auto) Lymph # (Auto) Cooper # (Auto) Eos # (Auto) Baso # (Auto) RBC Morphology Blood Type Antibody Screen
[2019-08-23] MEDS: OXYCODONE/ACETAMINOPHEN 5mg/325mg TAB PO PRN ×3 (01:34→12:47)
[2019-08-23] MEDS: IBUPROFEN 600 MG TAB PO PRN ×3 (01:35→12:47)
[2019-08-23] MEDS: PRENATAL VITAMIN 1 TAB PO SCH (09:02)
[2019-08-23] MEDS: SIMETHICONE 80 MG CHEW PO SCH ×2 (09:02→12:45)
[2019-08-23] MEDS: DOCUSATE SODIUM 100 MG CAP PO SCH (09:02)
[2019-08-23] MEDS: FERROUS SULFATE 325 MG TAB PO SCH (09:03)
[2019-08-23] MEDS: CITALOPRAM 40 MG TAB PO SCH (09:16)
[2019-08-23 11:40] LABS: Hematocrit (blood only) 31.6 % (37-47); Hemoglobin 9.9 g/dL (12.0-16.0); Mean Corpuscular Hemoglobin 23.9 pg (25-34); Mean Corpuscular Hgb Conc 31.3 g/dL (32-36); Mean Corpuscular Volume 76.1 fL (80-100); Mean Platelet Volume 9.6 fL (7.4-10.4); Platelet Count 306 K/uL (130-400); RDW Coefficient of Variation 15.4 % (11.5-14.5); RDW Standard Deviation 42.7 fL (36.4-46.3); Red Blood Count 4.15 M/uL (4.2-5.4); White Blood Count 9.84 K/uL (4.8-10.8)
[2019-08-23 12:02] LABS: Basophils # (auto) 0.02 K/uL (0-0.2); Basophils % (auto) 0.2 %; Immature Granulocytes # (auto) 0.04 K/uL (0.00-0.02); Immature Granulocytes % (auto) 0.4 %; Lymphocytes # (auto) 2.02 K/uL (1.2-3.4); Lymphocytes % (auto) 20.5 %; Monocytes # (auto) 0.55 K/uL (0.11-0.59); Monocytes % (auto) 5.6 %; Neutrophils # (auto) 6.91 K/uL (1.4-6.5); Neutrophils % (auto) 70.3 %
--- NOTE | 2019-08-23 12:27 | Obstetrical Progress Note ---
Date of Service August 23, 2019 Subjective Patient is seen and examined. She feels well, no complaints. Pain is under control with oral meds. Ambulating without dizziness Voiding without difficulty Tolerating regular diet with out N&V Flatus + BM neg Bleeding is minimal No fever/ chills/ CP/ SOB/ N&V/ Leg pain Breast feeding without problems Vital Signs Temp Pulse Resp BP Pulse Ox 08/23/19 09:00 36.9 C 87 17 113/63 97 08/22/19 23:05 36.9 C 76 16 113/68 97 08/22/19 19:40 37.1 C 87 16 117/66 97 08/22/19 15:45 36.9 C 78 18 115/67 96 Lab Results 08/20/19 08/20/19 08/21/19 Range/Units 06:53 06:53 05:48 WBC 9.83 11.50 H (4.8-10.8) K/uL RBC 4.63 4.32 (4.2-5.4) M/uL Hgb 11.2 L 10.2 L (12.0-16.0) g/dL Hct 34.7 L 32.2 L (37-47) % MCV 74.9 L 74.5 L (80-100) fL MCH 24.2 L 23.6 L (25-34) pg MCHC 32.3 31.7 L (32-36) g/dL RDW Std Deviation 41.0 40.2 (36.4-46.3) fL RDW Coeff of Jay 15.2 H 14.8 H (11.5-14.5) % Plt Count 243 186 (130-400) K/uL MPV 10.8 H 9.6 (7.4-10.4) fL Immature Gran % (Auto) 0.2 0.3 % Neut % (Auto) 69.1 82.0 % Lymph % (Auto) 22.5 10.3 % Yates % (Auto) 6.6 6.5 % Eos % (Auto) 1.4 0.8 % Baso % (Auto) 0.2 0.1 % Immature Gran # (Auto) 0.02 0.03 H (0.00-0.02) K/uL Neut # (Auto) 6.79 H 9.44 H (1.4-6.5) K/uL Lymph # (Auto) 2.21 1.18 L (1.2-3.4) K/uL Yates # (Auto) 0.65 H 0.75 H (0.11-0.59) K/uL Eos # (Auto) 0.14 0.09 (0-0.5) K/uL Baso # (Auto) 0.02 0.01 (0-0.2) K/uL RBC Morphology Unremarkable Blood Type A Positive Antibody Screen NEGATIVE 08/22/19 08/23/19 Range/Units 06:00 11:18 WBC 9.84 (4.8-10.8) K/uL RBC 4.15 L (4.2-5.4) M/uL Hgb 10.1 L 9.9 L (12.0-16.0) g/dL Hct 32.0 L 31.6 L (37-47) % MCV 76.1 L (80-100) fL MCH 23.9 L (25-34) pg MCHC 31.3 L (32-36) g/dL RDW Std Deviation 42.7 (36.4-46.3) fL RDW Coeff of Jay 15.4 H (11.5-14.5) % Plt Count 306 (130-400) K/uL MPV 9.6 (7.4-10.4) fL Immature Gran % (Auto) 0.4 % Neut % (Auto) 70.3 % Lymph % (Auto) 20.5 % Yates % (Auto) 5.6 % Eos % (Auto) 3.0 % Baso % (Auto) 0.2 % Immature Gran # (Auto) 0.04 H (0.00-0.02) K/uL Neut # (Auto) 6.91 H (1.4-6.5) K/uL Lymph # (Auto) 2.02 (1.2-3.4) K/uL Yates # (Auto) 0.55 (0.11-0.59) K/uL Eos # (Auto) 0.30 (0-0.5) K/uL Baso # (Auto) 0.02 (0-0.2) K/uL RBC Morphology Blood Type Antibody Screen PE: General: Alert, orientedx3, NAD CVS: S1S2 RRR Lungs; CTAB Abd: soft, NT, ND, BS+, fundus firm, below Umbilicus Incision: Clean, dry, intact Perineum intact, Lochia rubra minimal Ext; NT, no edema AP: 29 yo s/p C Section, pod# 3 VSS Afebrile doing well Continue routine postop care Encourage ambulation, PO intake All questions were answered D/C home , f/u in office Results & Data Vital Signs (Past 12 Hours) Vital Signs Temp Pulse Resp BP Pulse Ox 08/23/19 09:00 36.9 C 87 17 113/63 97
[2019-08-23] MEDS ORDERED: MAGNESIUM HYDROXIDE SUSP 30 ML UDC PO ONE (12:32)
--- NOTE | 2019-08-28 11:53 | Discharge Summary ---
CHIEF COMPLAINT: 1. at term. 2. Previous section, wishes to have repeat . HISTORY OF PRESENT ILLNESS: This is a 29-year-old G2, P1, prior section who was at term now opted to have repeat section after we discussed with the patient vaginal after section risk. The patient underwent a repeat section on 08/20/2019 at [facility] and delivered a live male, weight and Apgars as well as surgery details are in the respective records. The patient did well operatively. Postop she met all milestones in recovery. On postop day 1, 2 and 3, the patient did well and was discharged home in stable condition on 08/23/2019. PAST MEDICAL HISTORY: History of anxiety. PAST SURGICAL HISTORY: History of previous section. SOCIAL HISTORY: The patient denies tobacco, drug or alcohol use. FAMILY HISTORY: Noncontributory. ALLERGIES: THE PATIENT IS ALLERGIC TO NICKEL. REVIEW OF SYSTEMS: Negative except as dictated in the HPI. PHYSICAL EXAMINATION: GENERAL: Well-developed, well-nourished white female in no acute distress. VITAL SIGNS: On day of discharge, blood pressure was 113/63, pulse was 87, respirations 17, temperature 36.9. LABORATORY DATA: 08/23/2019 hemoglobin was 9.9, hematocrit was 31.6. HEART: S1, S2, regular rhythm and rate. LUNGS: Clear to auscultation bilaterally. ABDOMEN: Nontender, nondistended. Incision was clean, dry and intact. EXTREMITIES: No cyanosis, clubbing or edema. CONDITION ON DISCHARGE: Stable. OPERATION: Repeat section. DISCHARGE DIAGNOSIS: Repeat section. PLAN ON DISCHARGE: The patient is discharged home with instructions regarding activity, diet and followup appointment.
== END 2019-08-23 14:36 | disposition home or self-care (01) | DRG 788 ==
LOC: 4S1 06:40 → EDSTATUS 08:30 → 4S2 13:05